=== PATIENT | female | born 1950 | race Hispanic/Latino ===

== ENCOUNTER 2016-09-24 14:51 | Outpatient (CLI) | payer MEDICARE, OTHER | END 2016-09-24 14:52 | disposition home or self-care (01) | LOC: LABHHL 14:51 | PROVIDERS: ATTEND Surgery | DX: N60.92 Unspecified benign mammary dysplasia of left breast (principal); N60.12 Diffuse cystic mastopathy of left breast; R92.1 Mammographic calcification found on diagnostic imaging of breast | CPT/HCPCS: 88305 ==

== ENCOUNTER 2016-10-28 07:02 | Day surgery (SDC) | payer MEDICARE ==
--- NOTE | 2016-10-28 07:49 | Anesthesia Consultation ---
Anesthesia Consult and Med Hx Date of service: 10/28/16 - Airway Anesthetic Teeth Evaluation: Dentures (upper and lower) ROM Head & Neck: Adequate Mental/Hyoid Distance: Adequate Mallampati Class: Class II Intubation Access Assessment: Probably Good - Pulmonary Exam CTA: Yes - Cardiac Exam Cardiac Exam: RRR - Pre-Operative Health Status ASA Pre-Surgery Classification: ASA2 Proposed Anesthetic Plan: General - Pulmonary Hx Smoking: Yes (CIGARETTES 1 PPD X 16 YRS, QUIT IN 1981) Hx Sleep Apnea: No - Central Nervous System Hx Psychiatric Problems: Yes (Anxiety) - Hematic Hx Anemia: Yes (45 YRS AGO) - Other Systems Hx Cancer: No
--- NOTE | 2016-10-28 07:50 | Anesthesia Day of Surgery ---
Anesthesia Day of Surgery - Day of Surgery Patient Examined: Yes Patient H&P Reviewed: Yes Patient is NPO: Yes
[2016-10-28] MEDS ORDERED: NACL BACTERIOSTATIC INFILTRATI ONE (07:53)
[2016-10-28] MEDS ORDERED: NACL 0.9% 1000 ML 1,000 ML IV SCH (08:00)
[2016-10-28] MEDS ORDERED: PEPCID PO NR (08:00)
[2016-10-28] MEDS ORDERED: VERSED IV NR (08:00)
[2016-10-28] MEDS ORDERED: XYLOCAINE 1% 20 mL ONE ×2 (08:15→10:06)
[2016-10-28] MEDS ORDERED: SUBLIMAZE ONE (08:19)
[2016-10-28] MEDS ORDERED: ZOFRAN ONE (08:20)
[2016-10-28] MEDS ORDERED: DIPRIVAN 10 MG/ML IV ONE ×2 (08:20→09:57)
[2016-10-28] MEDS ORDERED: DECADRON ONE (08:20)
[2016-10-28] MEDS ORDERED: XYLOCAINE MPF 2% ONE (08:20)
--- NOTE | 2016-10-28 09:10 | Mammography Report ---
Needle localization: The patient percent with a clip in the superolateral breast. A lateral approach was utilized. Under mid mammography the clip was localized. 1% lidocaine use for local anesthesia. A 5 cm Green needle was introduced with position confirmed by mammography. A wire was left in place with removal of the needle. Mammographic confirmation of the final position. No complications encountered.
--- NOTE | 2016-10-28 09:24 | Procedure Note ---
Date of procedure: 10/28/16 Pre-op diagnosis: rt breast lesion Post-op diagnosis: same Procedure: needle loc Findings: n/a Anesthesia: local Surgeon: JOHNNA MATTHEWS Estimated blood loss: none Pathology: none (surgery)
--- NOTE | 2016-10-28 09:57 | Short Stay Summary ---
Short Stay Documentation Date of service: 10/28/16 - History H&P: obtained from office - Allergies and Medications Current Medications: Allergies No Known Allergies Allergy (Unverified 10/21/16 14:52) Home Medications Medication Instructions Recorded Confirmed Last Taken Type PARoxetine [Paxil] 20 mg PO DAILY 10/21/16 10/28/16 10/27/16 History Estradiol 2 mg PO DAILY 10/22/16 10/28/16 10/27/16 History HYDROcodone/APAP 5-325 [[place] 1 each PO Q6HR PRN #30 tablet 10/28/16 Unknown Rx 5/325] Active Medications Famotidine (Pepcid) 20 mg PO PREOP NR Stop: 10/28/16 23:59 Last Admin: 10/28/16 08:10 Dose: 20 mg Sodium Chloride (Nacl 0.9% 1000 Ml) 1,000 mls @ 125 mls/hr IV DIRECT ZEYNEP Last Admin: 10/28/16 09:30 Dose: 125 mls/hr Midazolam HCl (Versed) 2 mg IV PREOP NR Stop: 10/28/16 23:59 Last Admin: 10/28/16 09:34 Dose: 2 mg - Brief post op/procedure progress note Date of procedure: 10/28/16 Pre-op diagnosis: Left breast ADH Post-op diagnosis: same Procedure: Left needle localization excisional biopsy Anesthesia: GETA Findings: Left breast wire and clip present within radiograph specimen Surgeon: RANI LAMAR Estimated blood loss: minimal Pathology: list (left needle localization excisional biopsy) Specimen disposition: to lab Condition: stable - Disposition Condition at discharge: Good Disposition: DISCHARGED TO HOME OR SELFCARE Short Stay Discharge Plan Activity: other (no heavy lifting) Diet: regular Wound: other (keep incision clean and dry; may shower in 24 hours; no baths, pools or lakes; do not rub or scrub incision) Follow up with: LEE ANN NEUMANN MD [Primary Care Provider] - 7 Days RANI LAMAR MD [Staff Physician] - 7 Days Prescriptions: HYDROcodone/APAP 5-325 [[place] 5/325] 1 each PO Q6HR PRN #30 tablet PRN Reason: Pain
[2016-10-28] MEDS ORDERED: ePHEDrine SULFATE ONE (10:00)
--- NOTE | 2016-10-28 10:01 | Operative Report ---
Operative Report Operative Report: Date of procedure: 10/28/2016 Pre-operative diagnosis: Left breast ADH Post-operative diagnosis: Same Procedure name(s): Left needle localization excisional biopsy Surgeon: Calli Manzo M.D. Anesthesia: Gen. Findings: Clip and wire present within radiograph specimen Complications: None Disposition: PACU in good condition Indications for operative procedure: This is a 66-year-old lady with recent abnormal left mammogram and she underwent a left stereotactic breast biopsy with findings of atypical ductal hyperplasia. Recommendations were for an excisional biopsy to rule out malignancy. Patient wished to proceed with the above procedure. Procedure in detail: Radiology placed wire to localize clip from recent biopsy. The patient was taken to the operating room and was laid supine. Gen. anesthesia was administered. The left wire was identified. The left breast was prepped and draped in the normal sterile operative fashion. A skin incision was made with a 15 blade knife with dissection taken down to the subcutaneous tissues. First began raising of the medial flap followed by superior, lateral and inferior with removal of the wire from the skin. Dissection was taken down posteriorly. The area of concern was removed with the aid of Bovie cautery and sent to radiology with clip and wire present. Hemostasis was noted. The subcutaneous tissues were approximated and closed with an interrupted 3-0 Vicryl and the skin closed with a running 4-0 Monocryl and skin affix. The patient tolerated surgery very well and she was awakened from anesthesia and transported to PACU in good condition.
[2016-10-28] MEDS ORDERED: MARCAINE 0.25% INFILTRATI ONE ×3 (10:06→10:38)
[2016-10-28] MEDS ORDERED: QUELICIN ONE (10:06)
[2016-10-28] MEDS ORDERED: ANCEF ONE ×2 (10:15)
[2016-10-28] MEDS ORDERED: NACL 0.9% IR ONE (10:17)
[2016-10-28] MEDS ORDERED: DILAUDID ONE (10:45)
[2016-10-28 13:32] VITALS: BP 110/65
--- NOTE | 2016-10-28 13:44 | Post Anesthesia Evaluation ---
- Post Anesthesia Evaluation Patient Participated: Yes Airway Patent: Yes Stable Respiratory Function: Yes Nausea/Vomiting: No Temp > 96.8F: Yes Pain Manageable: Yes Adequeate Hydration: Yes Anesthesia Complications: No Patient on Ventilator: No
--- NOTE | 2016-10-28 14:29 | Mammography Report ---
Operative specimen mammogram: A single tissue specimen is submitted that contains the localizing wire and targeted biopsy marker. No other information.
== END 2016-10-28 13:50 | disposition home or self-care (01) ==
LOC: OR 07:02
PROVIDERS: ATTEND Surgery
DX: N60.92 Unspecified benign mammary dysplasia of left breast (principal); F41.9 Anxiety disorder, unspecified; D64.9 Anemia, unspecified; Z87.891 Personal history of nicotine dependence; Z98.890 Other specified postprocedural states
CPT/HCPCS: 19125; 19281; 76098; 88307; 93005; 93010; J0330; J0690; J1100; J1170; J2250; J2405; J2704; J3010; J7030

== ENCOUNTER 2020-09-18 08:43 | Outpatient (CLI) | payer MEDICARE ==
--- NOTE | 2020-09-18 09:38 | Mammography Report ---
DIGITAL SCREENING MAMMOGRAM WITH CAD, 09/18/2020 CLINICAL INFORMATION / INDICATION: Routine screening mammography. TECHNIQUE: Digital bilateral 2D mammography was obtained in the craniocaudal and mediolateral obliqu e projections. This examination was interpreted with the benefit of Computer-Aided Detection analysis . COMPARISON: 09/18/2019, 09/12/2018 FINDINGS: Breast Density: The breasts are heterogeneously dense, which may obscure small masses. No dominant mass, suspicious calcifications, or architectural distortion in the left breast. Postsurg ical scar, left breast. In the right breast, at 12:00, there is a new small oval nodular density measuring approximately 10 m m. This will need further evaluation with ultrasound. IMPRESSION: New small nodular density right breast at 12:00, anterior depth. Recommend right breast u ltrasound. Follow up recommendation: Ultrasound BI-RADS Category 0: Incomplete. Needs additional imaging evaluation and/or prior mammograms for reji rison. A "normal" or negative report should not discourage follow up or biopsy of a clinically significant f inding. A written summary of these findings will be mailed to the patient. The patient will be entered into a mammography reporting system which will generate a reminder letter for the patient's next appointmen t at the appropriate interval. The [employer] recommends yearly mammograms starting at age 40 and continuing as l nelsy as a woman is in good health. Breast MRI is recommended for women with an approximate 20-25% or greater lifetime risk of breast cancer, including women with a strong family history of breast or ova malvin cancer or who have been treated for Hodgkin's disease. Signer Name: Maribell Ramirez MD Signed: 09/18/2020 9:33 AM Workstation Name: [id number]
== END 2020-09-18 08:44 | disposition home or self-care (01) ==
LOC: SPVWC 08:43
PROVIDERS: ATTEND Surgery
DX: Z12.31 Encounter for screening mammogram for malignant neoplasm of breast (principal); N64.89 Other specified disorders of breast
CPT/HCPCS: 77067

== ENCOUNTER 2020-10-09 11:29 | Outpatient (CLI) | payer MEDICARE ==
--- NOTE | 2020-10-09 13:14 | Ultrasound Report ---
ULTRASOUND BREAST RIGHT LIMITED, 10/09/2020 CLINICAL INFORMATION / INDICATION: R92.2 INCONCLUSIVE MAMMO. Patient presents as a callback from scre ening mammogram for further evaluation of a nodular density in the right breast. TECHNIQUE: Targeted ultrasound evaluation was performed of the area of interest. COMPARISON: Prior mammogram 09/18/2020 FINDINGS: Corresponding with the nodular density seen on recent mammogram, there is an 8 mm benign cyst in the right breast 12:00 position located 3 cm from the nipple. There is an adjacent incidental irregular h ypoechoic mass in the 12:00 position located 3 cm from the nipple measuring up to 11 x 11 x 8 mm. No internal vascularity is demonstrated. There are probable internal cystic components, with increased t hrough transmission noted. There is an additional incidental 4 mm cyst in the 1:00 position located 3 cm the nipple. IMPRESSION: 1. A benign cyst accounts for the mammographic finding. However, there is an incidental adjacent irre gular hypoechoic mass in the 12:00 position located 3 cm from the nipple as described above. While th is may reflect a focus of dense fibrocystic tissue, ultrasound-guided biopsy is recommended for confi rmation. Follow up recommendation: Biopsy BI-RADS Category 4: Suspicious for Malignancy. A normal or "negative" report should not preclude biopsy or follow-up of a clinically suspicious find ing. Signer Name: Louann Beach MD Signed: 10/09/2020 12:37 PM Workstation Name: [id number]
== END 2020-10-09 11:30 | disposition home or self-care (01) ==
LOC: SPVWC 11:29
PROVIDERS: ATTEND Surgery
DX: N60.01 Solitary cyst of right breast (principal); N63.12 Unspecified lump in the right breast, upper inner quadrant

== ENCOUNTER 2020-10-22 12:41 | Outpatient (CLI) | payer MEDICARE ==
--- NOTE | 2020-10-22 15:08 | Ultrasound Report ---
ULTRASOUND-GUIDED CORE NEEDLE BIOPSY Right BREAST WITH CLIP PLACEMENT INDICATION: Right breast lesion at the 12:00 position. FINDINGS: Informed consent was obtained. The lesion within the right breast at the 12:00 position, 3 cm from th e nipple, was identified with ultrasound. The overlying skin was cleansed with chloro prep and local anesthesia was obtained with a 1% lidocaine solution. Under ultrasound guidance a 14-gauge [employer] core biopsy needle was advanced to the lesion. A total of 5 core samples were obtained. A U-shape d biopsy marker was placed to cande the site of the biopsy. Specimen samples were placed in formalin a nd sent to pathology for analysis. Patient tolerated the procedure well and no immediate complications were identified. A post procedure mammogram demonstrates biopsy marker in the expected location. IMPRESSION: Technically successful ultrasound-guided core biopsy of right breast lesion at the 12:00 position wit h placement of a U-shaped biopsy marker. An addendum will be added to this report once pathology results are available. Signer Name: Bryan Johnson MD Signed: 10/22/2020 3:04 PM Workstation Name: [id number]
--- NOTE | 2020-10-22 15:10 | Mammography Report ---
RIGHT DIAGNOSTIC MAMMOGRAM INDICATION: Right breast lesion at the 12:00 position. COMPARISON: Ultrasound performed earlier the same day, 09/18/2020. FINDINGS: Right breast CC and LM projection mammograms were obtained. These document the location of a U-shaped biopsy marker at the site of recent ultrasound-guided core biopsy. IMPRESSION: Right breast mammographic images documenting location of U shaped biopsy marker at site of recent ult rasound-guided core biopsy at the 12:00 position. BI-RADS Category 4: Suspicious for Malignancy. Signer Name: Bryan Johnson MD Signed: 10/22/2020 3:06 PM Workstation Name: [id number]
== END 2020-10-22 12:42 | disposition home or self-care (01) ==
LOC: SPVWC 12:41
PROVIDERS: ATTEND Surgery
DX: N63.12 Unspecified lump in the right breast, upper inner quadrant (principal); R92.8 Other abnormal and inconclusive findings on diagnostic imaging of breast; N64.89 Other specified disorders of breast; F41.9 Anxiety disorder, unspecified; D64.9 Anemia, unspecified; Z87.891 Personal history of nicotine dependence; Z79.899 Other long term (current) drug therapy; Z98.41 Cataract extraction status, right eye; Z98.42 Cataract extraction status, left eye; Z90.710 Acquired absence of both cervix and uterus; Z98.890 Other specified postprocedural states
CPT/HCPCS: 88305